=== PATIENT | male | born 1990 | race Hispanic/Latino ===

== ENCOUNTER 2016-11-09 10:49 | Emergency (ER) | payer SELFPAY ==
[2016-11-09] MEDS ORDERED: MOTRIN800 MG PO (11:34)
[2016-11-09 12:43] VITALS: BP 109/67
== END 2016-11-09 12:43 | disposition home or self-care (01) | DRG 866 ==
LOC: ED 10:49
DX: B01.9 Varicella without complication (principal); R50.9 Fever, unspecified